=== PATIENT | female | born 1970 | race Caucasian/White ===

== ENCOUNTER 2016-09-02 05:14 | Inpatient (IN) | payer OTHER ==
[2016-08-14 10:57] VITALS: BMI 25.0
--- NOTE | 2016-08-14 11:32 | PAT Medication Instructions ---
Service Date Aug 14, 2016. Current Home Medication List Cholecalciferol (Vitamin D), 2,000 UNITS PO HS Cyanocobalamin (Vitamin B12), 500 MCG PO HS Multiple Vitamins W/ Minerals (Multi For Her), 1 TAB PO HS Phentermine Hcl (Adipex P), 0.5 TAB PO PRN Pyridoxine (Vitamin B6), 500 MG PO HS Valacyclovir (Valtrex), 500 MG PO QAM Medication Instructions For Your Scheduled Surgery - Hold the following medications the morning of surgery: Phentermine Hcl (Adipex P), 0.5 TAB PO PRN - Take the following medications the morning of surgery with a sip of water: Valacyclovir (Valtrex), 500 MG PO QAM - Take the following medications as scheduled the night before surgery: Cholecalciferol (Vitamin D), 2,000 UNITS PO HS Cyanocobalamin (Vitamin B12), 500 MCG PO HS Multiple Vitamins W/ Minerals (Multi For Her), 1 TAB PO HS Pyridoxine (Vitamin B6), 500 MG PO HS If you have any questions please call us at [phone] or [phone] or [phone]
--- NOTE | 2016-08-14 12:00 | DIAGNOSTIC IMAGING REPORT ---
CHEST 2 VIEWS ROUTINE CLINICAL HISTORY: PAT preoperative evaluation COMPARISON STUDY: No previous studies for comparison. FINDINGS: The bones soft tissues and hemidiaphragms are normal. The cardiomediastinal silhouette is normal. The lungs are clear. The pulmonary vasculature is normal. IMPRESSION: Negative chest. Electronically signed by: Jeff Baer M.D. 08/14/2016 11:58 AM Dictated Date/Time: 08/14/2016 11:58 AM
[2016-08-14 12:23] LABS: BASO % 0.2 %; BASO ABS # 0.01 K/uL (0-0.2); COMPLETE YES; EOS % 0.7 %; HEMATOCRIT 40.9 % (37-47); LYMPH % 34.2 %; LYMPH ABS # 1.85 K/uL (1.2-3.4); MEAN CELL VOLUME 105.7 fL (80-100); MEAN PLATELET VOLUME 11.5 fL (7.4-10.4); MONO % 8.3 %; NEUT % 56.6 %; PLATELET COUNT 204 K/uL (130-400); RED BLOOD COUNT 3.87 M/uL (4.2-5.4); WHITE BLOOD COUNT 5.41 K/uL (4.8-10.8)
[2016-08-14 12:24] LABS: PROTHROMBIN TIME (PATIENT) 11.1 SECONDS (9.0-12.0)
[2016-08-14 12:35] LABS: URINE APPEARANCE CLEAR (CLEAR); URINE BILIRUBIN NEG (NEG); URINE COLOR YELLOW; URINE EPITHELIAL CELL AUTO >30 /lpf (0-5); URINE NITRITE NEG (NEG); URINE SPECIFIC GRAVITY 1.017 (1.000-1.030); UROBILINOGEN NEG (NEG)
[2016-08-14 12:36] LABS: BUN/CREATININE RATIO 19.6 (10-20); CALCIUM 9.9 mg/dl (8.5-10.1); CREATININE 0.71 mg/dl (0.60-1.20); POTASSIUM 4.5 mmol/L (3.5-5.1)
[2016-08-14 12:37] LABS: MANUAL MICROSCOPIC REQUIRED? NO; REVIEW REQ? NO
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
[~2016-09-02] VITALS: Ht 172.7 cm; Wt 25.5 kg
[2016-09-02] VITALS (10 sets, daily range): BP systolic 89–122; BP diastolic 55–78; PULSE 53–81; TEMP 36.3–36.9; O2SAT 96–100; Ht 172.7 cm; Wt 25.5 kg
[~2016-09-02 05:14] MED LIST: CHOL100010 PO; CYAN100020 PO; MULT-222 PO; PHEN37.585 PO; PYRI100T4 PO; VALA500T60 PO
[2016-09-02] MEDS ORDERED: FAMOTIDINE 20 MG TAB PO SCH (06:00)
[2016-09-02] MEDS ORDERED: GABAPENTIN 300 MG CAP PO SCH (06:00)
[2016-09-02] MEDS ORDERED: LACTATED RINGER'S 1000ML 500 ML IV ONE (06:00)
[2016-09-02] MEDS ORDERED: METOCLOPRAMIDE HCL 10 MG TAB PO SCH (06:00)
[2016-09-02] MEDS ORDERED: LACTATED RINGER'S 1000ML 1,000 ML IV SCH (06:00)
[2016-09-02] MEDS ORDERED: DEXAMETHASONE 4 MG TAB PO SCH (06:00)
[2016-09-02] MEDS ORDERED: ACETAMINOPHEN 500 MG TAB PO SCH (06:00)
[2016-09-02] MEDS ORDERED: ROPIVACAINE 5MG/ML 30 ML 150 MG, BUPIVACAINE/EPINEPHR 0.5% MPF 30 ML, KETOROLAC TROMETH... INFIL SCH ×7 (06:00)
[2016-09-02] MEDS ORDERED: VANCOMYCIN INJ 400 MG in NSS 100ML IR SCH (06:00)
[2016-09-02] MEDS ORDERED: CEFAZOLIN 2000 MG/60 ML D5W 60 ML IV SCH (06:00)
[2016-09-02] MEDS ORDERED: CeleBREX 200 MG CAP PO SCH (06:00)
[2016-09-02] MEDS ORDERED: OXYCODONE HCL 10 MG TABCR (OXYCONTIN) PO SCH (06:00)
[2016-09-02] MEDS ORDERED: LACTATED RINGER'S 1000ML IV SCH (06:00)
[2016-09-02] MEDS ORDERED: POLYMYXIN B SULFATE 100,000 UNITS in NSS 100ML IR SCH (06:00)
[2016-09-02] MEDS: TRANEXAMIC ACID INJ 1,000 MG in SODIUM CHLORIDE 0.9% 100ML 100 ML IV SCH ×2 (06:30→06:55)
[2016-09-02] MEDS ORDERED: BUPIVACAINE 0.5 % 5 MG/1 ML PF 10ML VIAL ONE (06:35)
[2016-09-02] MEDS ORDERED: MIDAZOLAM HCL 1 MG/ML 2ML VIAL ONE ×2 (06:43→07:23)
[2016-09-02] MEDS ORDERED: FENTANYL CITRATE INJ 50 MCG/1 ML 2 ML VIAL ONE (06:43)
--- NOTE | 2016-09-02 06:54 | History & Physical Bridge Note ---
H&P Re-Evaluation Bridge Note: I have examined the patient, reviewed the History & Physical and in the interval since the performance of the History & Physical I have noted the following changes of clinical significance: No changes noted
[2016-09-02] MEDS ORDERED: ONDANSETRON INJ 2 MG/ML 2 ML VIAL ONE (06:55)
[2016-09-02] MEDS ORDERED: ORTHO JOINT ANESTHETIC ONE (07:04)
[2016-09-02] MEDS ORDERED: BACITRACIN 50000 UNIT VIAL ONE (07:05)
[2016-09-02] MEDS ORDERED: POVIDONE-IODINE OP SOLN 30 ML BTL ONE (07:05)
[2016-09-02] MEDS ORDERED: BUPIVACAINE/EPINEPHRINE 0.25% 1:200,000 30 ML VIAL ONE (07:05)
[2016-09-02] MEDS ORDERED: PROPOFOL IV EMULSION 10 MG/ML 20 ML VIAL IV ONE ×2 (07:29→08:24)
[2016-09-02] MEDS ORDERED: LIDOCAINE HCL 2% 2 ML VIAL (20MG/ML) ONE (07:29)
[2016-09-02] MEDS ORDERED: EpHEDrine SULFATE 50MG/5ML SYR ONE (07:41)
[2016-09-02] MEDS ORDERED: ONDANSETRON INJ 2 MG/ML 2 ML VIAL IV PRN ×2 (08:15→08:30)
[2016-09-02] MEDS ORDERED: ATROPINE SULFATE 0.1 MG/ML 5ML SYR IV PRN (08:15)
[2016-09-02] MEDS ORDERED: FENTANYL CITRATE INJ 50 MCG/1 ML 2 ML VIAL IV PRN (08:15)
[2016-09-02] MEDS ORDERED: MoRPHine SULFATE 10 MG/ML CARP/VIAL IV PRN (08:15)
[2016-09-02] MEDS ORDERED: EpHEDrine SULFATE INJ 50 MG/ML AMP IV PRN (08:15)
[2016-09-02] MEDS ORDERED: METOCLOPRAMIDE HCL INJ 5 MG/ML 2 ML VIAL IV PRN (08:30)
[2016-09-02] MEDS ORDERED: SOD PHOSPHATE/SOD BIPHOSPHATE ENEMA 132 ML BTL PR PRN (08:30)
[2016-09-02] MEDS ORDERED: TRAMADOL HCL 50 MG TAB PO PRN (08:30)
[2016-09-02] MEDS ORDERED: DiphenhydrAMINE HCL 50 MG/ML VIAL IV PRN (08:30)
[2016-09-02] MEDS ORDERED: ALUMINUM/MAGNESIUM/SIMETH (MAALOX MAX) 30 ML UDC PO PRN (08:30)
[2016-09-02] MEDS ORDERED: ZOLPIDEM TARTRATE 5 MG TAB PO PRN (08:30)
[2016-09-02] MEDS ORDERED: MAGNESIUM HYDROXIDE SUSP 30 ML UDC PO PRN (08:30)
[2016-09-02] MEDS ORDERED: BISACODYL 10 MG SUPP PR PRN (08:30)
--- NOTE | 2016-09-02 08:30 | [facility] Post Operative Brief Note ---
Immediate Operative Summary Operative Date Sep 02, 2016. Pre-Operative Diagnosis Posttraumatic degenerative joint disease, left knee Post-Operative Diagnosis Same Procedure(s) Performed Left Total Knee Arthroplasty Cemented Surgeon Dr Eri Haney Woodworking Machine Operator Surgeon(s) Nidia Fierro PA-C Estimated Blood Loss 50ML Findings DJD ACL DEF Specimens A. Left knee bone and tissue Complication(s) None Disposition Recovery Room / PACU
[2016-09-02] MEDS: OXYCODONE HCL 10 MG TABCR (OXYCONTIN) PO SCH ×2 (09:00→20:43)
--- NOTE | 2016-09-02 09:19 | DIAGNOSTIC IMAGING REPORT ---
LEFT KNEE 1 OR 2 VIEWS ROUTINE CLINICAL HISTORY: Left knee arthritis. Arthroplasty. COMPARISON: None FINDINGS: Alignment of the total left knee arthroplasty is anatomic. There is no acute fracture or unexpected radiopaque foreign body. A screw within the proximal left tibia is present. IMPRESSION: Expected findings following total left knee arthroplasty. Electronically signed by: Melvin Chow M.D. 09/02/2016 9:18 AM Dictated Date/Time: 09/02/2016 9:17 AM
--- NOTE | 2016-09-02 09:32 | Anesthesiology Progress Note ---
Anesthesia Post Op Note Date & Time Sep 02, 2016 at 09:32 Vital Signs Pain Intensity: 0 Vital Signs Past 12 Hours Date Time Temp Pulse Resp B/P Pulse Ox O2 Delivery O2 Flow Rate FiO2 09/02/16 09:25 58 16 92/56 100 Nasal Cannula 2 09/02/16 09:15 58 14 95/63 100 Mask 10 09/02/16 09:05 55 15 97/59 100 Mask 10 09/02/16 08:59 36.0 62 18 98/57 100 Mask 10 09/02/16 05:56 36.8 64 18 122/78 99 Room Air Notes Mental Status: alert / awake / arousable, participated in evaluation Pt Amnestic to Procedure: Yes Nausea / Vomiting: adequately controlled Pain: adequately controlled Airway Patency, RR, SpO2: stable & adequate BP & HR: stable & adequate Hydration State: stable & adequate Neuraxial Anesthesia: was administered, sensory block is resolving Anesthetic Complications: no major complications apparent
[2016-09-02] MEDS: OXYCODONE HCL IR 5 MG TAB (IMMEDIATE RELEASE) PO PRN ×3 (13:07→21:06)
[2016-09-02] MEDS: ACETAMINOPHEN 500 MG TAB PO SCH ×2 (14:19→22:13)
[2016-09-02] MEDS: D5W AND 1/2NSS + 20MEQ KCL 1,000 ML IV SCH ×2 (14:20→20:42)
[2016-09-02] MEDS ORDERED: TRANEXAMIC ACID INJ 1,000 MG in SODIUM CHLORIDE 0.9% 100ML 100 ML IV SCH (14:30)
--- NOTE | 2016-09-02 16:52 | OPERATIVE REPORT ---
DATE OF OPERATION: 09/02/2016 PREOPERATIVE DIAGNOSIS: Posttraumatic degenerative arthritis, left knee. POSTOPERATIVE DIAGNOSIS: Same. PROCEDURE: Left total knee with patient matched implant. SURGEON: John Haney M.D. FOUNDER AND CHIEF EXECUTIVE OFFICER: Nidia Fierro PA-C. ANESTHESIA: Spinal. BLOOD LOSS: 50 mL. REPLACEMENT FLUIDS: 1100 mL crystalloid. DRAINS: Hemovac x2. CULTURES: None. COMPLICATIONS: None. COMPONENTS USED: Wing \T\ Nephew Journey Knee System: Femur size 5, tibia size 4 x 9, patella size 29. NOTE: Nidia Fierro was present and assisted throughout due to the complicated nature of the case. She helped with preparation and setup, first assisted throughout and personally closed the capsule, subcutaneous and skin layers and applied the postoperative dressing. OPERATION AND FINDINGS: DESCRIPTION: Following satisfactory spinal, the patient was supine. A tourniquet was placed but not inflated. The lower extremity was prepared with ChloraPrep and draped sterilely. Following a surgical time-out, a midline incision was made with a trivector approach. The knee showed chronic scarring. There was no evidence of an ACL and there was severe grade 4 changes in all 3 compartments with abundant osteophytes. The posterior cruciate ligament was excised. The patient matched femoral block was applied. Femoral distal rotation and resection were set and completed. The 4-in-1 block was used to finish preparation of the femur. The patient matched tibial block was applied. Tibial resection was completed. The patella was freehand cut. Soft tissue balancing was completed and a trial reduction showed very good tensioning stability on the collateral ligaments, stable range of motion, and the patella tracked well. The trial components were removed. The capsule was prepared with the orthopedic cocktail and after irrigation the components were cemented using Simplex G cement. A Betadine soak was performed. When the cement had hardened, the Betadine was irrigated. Two drains were placed. The arthrotomy was closed with a running suture of 0 V-Loc and reinforced with 1 Vicryl, subcutaneous tissues with 2-0 Vicryl and the skin with a running subcuticular stitch of 3-0 V-Loc. Dermabond and a dry dressing were applied. The patient was returned to her bed in stable condition. I attest to the content of the Intraoperative Record and any orders documented therein. Any exceptio ns are noted below.
[2016-09-02] MEDS: CEFAZOLIN IV 2,000 MG in DEXTROSE 5% 50ML 50 ML IV SCH (16:56)
[2016-09-02] MEDS: MoRPHine SULFATE 2 MG/ML CARP IV PRN ×2 (17:50→22:13)
[2016-09-02] MEDS: KETOROLAC TROMETHAMINE 30 MG/ML VIAL IV. PRN (17:51)
[2016-09-02] MEDS: ASPIRIN 81 MG ECTAB PO SCH (20:42)
[2016-09-02] MEDS: CHOLECALCIFEROL 1000 INTER.UNIT TAB PO SCH (20:43)
[2016-09-02] MEDS: CYANOCOBALAMIN 500 MCG TAB (VIT B-12) PO SCH (20:43)
[2016-09-02] MEDS: SENNA 8.6 MG TAB PO SCH (20:43)
[2016-09-02] MEDS: PYRIDOXINE HCL 50 MG TAB PO SCH (20:45)
[2016-09-03] MEDS: MoRPHine SULFATE 2 MG/ML CARP IV PRN ×2 (00:18→03:59)
[2016-09-03] MEDS: KETOROLAC TROMETHAMINE 30 MG/ML VIAL IV. PRN ×4 (00:18→23:42)
[2016-09-03] MEDS: CEFAZOLIN IV 2,000 MG in DEXTROSE 5% 50ML 50 ML IV SCH (00:18)
[2016-09-03] MEDS: OXYCODONE HCL IR 5 MG TAB (IMMEDIATE RELEASE) PO PRN ×5 (02:17→23:43)
[2016-09-03 03:05] VITALS: BP 91/52; PULSE 57; TEMP 36.5; O2SAT 94
[2016-09-03 05:36] LABS: HEMATOCRIT 29.9 % (37-47); MEAN CELL VOLUME 103.5 fL (80-100); MEAN CORPUSCULAR HEMOGLOBIN 34.9 pg (25-34); MEAN CORPUSCULAR HGB CONC 33.8 g/dl (32-36); MEAN PLATELET VOLUME 10.8 fL (7.4-10.4); PLATELET COUNT 165 K/uL (130-400); RED BLOOD COUNT 2.89 M/uL (4.2-5.4); WHITE BLOOD COUNT 11.12 K/uL (4.8-10.8)
[2016-09-03 06:10] LABS: BUN/CREATININE RATIO 17.9 (10-20); CALCIUM 8.4 mg/dl (8.5-10.1); CREATININE 0.61 mg/dl (0.60-1.20); POTASSIUM 3.9 mmol/L (3.5-5.1)
[2016-09-03] MEDS: ACETAMINOPHEN 500 MG TAB PO SCH ×3 (06:23→21:42)
[2016-09-03] MEDS: D5W AND 1/2NSS + 20MEQ KCL 1,000 ML IV SCH (06:24)
[2016-09-03 07:51] VITALS: BP 100/70; PULSE 62; TEMP 36.4; O2SAT 100
--- NOTE | 2016-09-03 07:53 | Orthopedic Progress Note ---
Orthopedic Progress Note Date of Service Sep 03, 2016. Subjective Post OP Day: 2 Reports: feeling well, pain controlled w PO medications, Denies: calf pain, complaints Objective calves soft nontender, N/V intact, dressing C/D/I, A&O x3, hemovac drainage ( 850 150 LAST SHIFT ) Date Time Temp Pulse Resp B/P Pulse Ox O2 Delivery O2 Flow Rate FiO2 09/03/16 03:05 36.5 57 18 91/52 94 Room Air 09/02/16 23:10 36.6 53 16 92/55 96 Room Air 09/02/16 20:00 Room Air 09/02/16 19:05 36.5 56 16 98/62 96 Room Air 09/02/16 15:08 36.4 69 18 93/57 97 Room Air 09/02/16 12:58 36.9 81 19 109/60 96 Room Air 09/02/16 11:54 64 19 94/60 100 Nasal Cannula 2.0 09/02/16 11:22 63 16 94/59 09/02/16 10:54 36.3 56 19 89/57 100 Nasal Cannula 2.0 09/02/16 10:21 63 19 105/69 100 Nasal Cannula 2.0 09/02/16 09:55 Nasal Cannula 2.0 09/02/16 09:55 36.4 64 16 97/60 98 Nasal Cannula 2.0 09/02/16 09:55 Nasal Cannula 2.0 09/02/16 09:40 59 17 93/59 100 Nasal Cannula 2 09/02/16 09:35 36.4 62 14 94/59 100 Nasal Cannula 2 09/02/16 09:25 58 16 92/56 100 Nasal Cannula 2 09/02/16 09:15 58 14 95/63 100 Mask 10 09/02/16 09:05 55 15 97/59 100 Mask 10 09/02/16 08:59 36.0 62 18 98/57 100 Mask 10 Laboratory Results 24 Hours: Test 09/03/16 04:58 Hematocrit 29.9 % Hemoglobin 10.1 g/dL Assessment & Plan Assessment: POD 1 TKA Plan: PT LIVES IN [place] WILL OBSERVE TODAY DUE TO DRAINAGE DC DRESSING DRAIN IN AM Inhouse Planning Pain Management: Celebrex, Oxycontin, PO Tylenol, Oxy IR DVT Prophylaxis: TEDs, SCDs, ASA Discharge Planning Discharge Planning: home with home health Pain Management: Celebrex, Oxycontin, PO Tylenol, Oxy IR DVT Prophylaxis: TEDs, ASA
[2016-09-03 08:49] VITALS: O2SAT 100
[2016-09-03] MEDS: ASPIRIN 81 MG ECTAB PO SCH ×2 (08:59→20:44)
[2016-09-03] MEDS: PANTOprazole SOD 40 MG TAB PO SCH (08:59)
[2016-09-03] MEDS: MULTIVITAMIN TAB PO SCH (08:59)
[2016-09-03] MEDS: OXYCODONE HCL 10 MG TABCR (OXYCONTIN) PO SCH ×2 (09:00→20:43)
--- NOTE | 2016-09-03 09:46 | Anesthesiology Progress Note ---
Anesthesia Post Op Note Date & Time Sep 03, 2016 at 09:46 Vital Signs Vital Signs Past 12 Hours Date Time Temp Pulse Resp B/P Pulse Ox O2 Delivery O2 Flow Rate FiO2 09/03/16 08:49 100 Room Air 09/03/16 08:26 Room Air 09/03/16 07:51 36.4 62 16 100/70 100 Room Air 09/03/16 03:05 36.5 57 18 91/52 94 Room Air 09/02/16 23:10 36.6 53 16 92/55 96 Room Air Notes Mental Status: alert / awake / arousable, participated in evaluation Pt Amnestic to Procedure: Yes Nausea / Vomiting: adequately controlled Pain: adequately controlled Airway Patency, RR, SpO2: stable & adequate BP & HR: stable & adequate Hydration State: stable & adequate Neuraxial Anesthesia: was administered, sensory block resolved Anesthetic Complications: no major complications apparent
[2016-09-03 11:46] VITALS: BP 98/78; PULSE 58; TEMP 36.3; O2SAT 100
[2016-09-03 15:12] VITALS: BP 104/66; PULSE 60; TEMP 36.3; O2SAT 100
[2016-09-03] MEDS: PYRIDOXINE HCL 50 MG TAB PO SCH (20:43)
[2016-09-03] MEDS: SENNA 8.6 MG TAB PO SCH (20:44)
[2016-09-03] MEDS: CYANOCOBALAMIN 500 MCG TAB (VIT B-12) PO SCH (20:45)
[2016-09-03] MEDS: CHOLECALCIFEROL 1000 INTER.UNIT TAB PO SCH (20:45)
[2016-09-03 22:50] VITALS: BP 98/64; PULSE 74; TEMP 36.6; O2SAT 98
[2016-09-04] MEDS: OXYCODONE HCL IR 5 MG TAB (IMMEDIATE RELEASE) PO PRN ×2 (04:58→09:33)
[2016-09-04] MEDS: ACETAMINOPHEN 500 MG TAB PO SCH (05:50)
[2016-09-04 05:57] VITALS: BP 115/80; PULSE 63; TEMP 36.6; O2SAT 99
--- NOTE | 2016-09-04 07:36 | Discharge Instructions ---
Discharge Instructions Date of Service Sep 04, 2016. Admission Reason for Admission: Left Knee Degenerative Arthritis Discharge Discharge Diagnosis / Problem: sp left total knee arthroplasty Discharge Goals Goal(s): Decrease discomfort, Improve function, Increase independence Activity Recommendations Activity Limitations: per Instructions/Follow-up section . Instructions / Follow-Up Instructions / Follow-Up ACTIVITY RECOMMENDATIONS: SELF CARE INSTRUCTIONS AFTER TOTAL KNEE REPLACEMENT A. You may need to continue a physical therapy program after discharge from the hospital. There are several options available to you. Your doctor will assist you in selecting the best one for you. 1. An out-patient facility 2 to 3 times a week for therapy or home therapy. 2. Continue working on all exercises taught to you in the hospital. Your goals should be to increase bending of your knee to 90 degrees and beyond and to fully straighten your knee. B. You may progress at your own pace from walking with a walker or crutches to a cane; then to no assistive devices. C. Make walking a part of your daily routine. Be up as much as comfortable with rest periods throughout the day. Rest with leg elevation is very important. Use the ice wrap frequently for the first 3-4 weeks. D. There are no restrictions on activities. You may ride in a car, shop, participate in deputy sheriff and all social activities. E. Wear the long elastic stockings (RAMSES hose) 20 hours a day for 2 weeks after surgery. They can be removed several times a day for laundering and for a bath. F. You may shower, no tub baths until cleared by your doctor. SPECIAL CARE INSTRUCTIONS: VERY IMPORTANT TO READ AND REVIEW A. There are a few signs you need to watch for after you are home. Call [facility] if you notice any of the followin. Increased severe knee pain. Some pain is expected especially when you exercise. 2. Increased swelling in your leg or knee; pain or swelling of the calf muscle in either lower leg. 3. Any fluid drainage from the incision. 4. Shortness of breath or chest pain. B. Please call [facility] at if you have any concerns or questions about your operation or recovery. The doctor or his nurse will return your call promptly. C. You must take antibiotics before dental work, bladder, bowel or other surgery. Your doctor will provide you with a permanent care to carry describing this precaution. IMPORTANT: * REMEMBER TO TAKE ASPIRIN, 81 MG, TWICE DAILY FOR 4 WEEKS UNLESS OTHERWISE DIRECTED. THIS IS YOUR BLOOD THINNER. * HIGH RISK PATIENTS MAY BE PRESCRIBED A STRONGER BLOOD THINNER. THIS WILL BE PROVIDED AT DISCHARGE. * CALL IF INCREASED PAIN, REDNESS, DRAINAGE OR FEVER GREATER THAT 101. * WEAR RAMSES HOSE 20 HOURS PER DAY FOR 2 WEEKS. DERMABOND Prineo- This is a mesh tape dressing that is covered with glue. It should remain in place until the incision is properly healed, usually 10-14 days. This dressing is designed to naturally slough off. You may trim the excess mesh tape as it peels off. Incision may be briefly wet in a shower. Dry immediately by blotting with a clean, dry towel. Do not bath or swim until instructed by your doctor. Do not scratch, rub, or pick at the dressing. Do not apply any topical ointments or lotions until dressing is completely removed and/or instructed by your doctor. There may be a small piece of suture material at one end of your incision. Do not pull or trim this. If it is bothersome or catching on clothing, you may cover it with a band-aid. FOLLOW UP VISIT: If appointment is not already scheduled: Please call [facility] to make a follow-up appointment for 2 weeks after your surgery at . Current Hospital Diet Patient's current hospital diet: Regular Diet Discharge Diet Recommended Diet: Regular Diet Procedures Procedures Performed: Left Total Knee Arthroplasty Cemented Pending Studies Studies pending at discharge: no Medical Emergencies . Who to Call and When: Medical Emergencies: If at any time you feel your situation is an emergency, please call 911 immediately. . Non-Emergent Contact Non-Emergency issues call your: Surgeon . "Provider Documentation" section prepared by iNdia Fierro. VTE Core Measure Inpt VTE Proph given/why not?: Other Anticoagulation, T.E.Rigoberto De La Garza, SCD's [place] Drug Monitoring Program Search Results: see additional documentation (PATIENT IS FROM [place].)
[2016-09-04] MEDS ORDERED: ONDA8TAB6 PO (07:39)
[2016-09-04] MEDS ORDERED: MORP-157 PO (07:39)
[2016-09-04] MEDS ORDERED: ASPEC81 PO (07:39)
[2016-09-04] MEDS ORDERED: RXC5 PO (07:39)
[2016-09-04] MEDS ORDERED: CLB200 PO (07:39)
[2016-09-04] MEDS ORDERED: ACET-1138 PO (07:39)
[2016-09-04] MEDS ORDERED: SNK PO (07:39)
--- NOTE | 2016-09-04 08:01 | DISCHARGE SUMMARY ---
DISCHARGE DIAGNOSIS: Degenerative joint disease left knee. SECONDARY DIAGNOSIS: None. CONSULTS: None. COMPLICATIONS: None. PROCEDURE: The patient underwent a left total knee arthroplasty with Dr. Haney on 09/02/2016. BRIEF HISTORY: Please see previously dictated history and physical. HOSPITAL SUMMARY: The patient was admitted on the above day for the above procedure. Procedure went without complication. Postop day 1, the patient was feeling well without complaints. She denied chest pain or shortness of breath. Vital signs were stable. She was afebrile. Dressing was clean, dry and intact. She was neurovascularly intact. Calves were soft and nontender. Hemovac drained 850 and 150 mL per shift. Hemoglobin was 10.1. The patient began physical therapy per protocol. Postop day 2 the patient was improving. She denied chest pain or shortness of breath. Vital signs were stable. She was afebrile. Incision was clean, dry and intact. She was neurovascularly intact. Calves are soft and nontender. The patient continued to progress with physical therapy per protocol. She was discharged to home later that day in stable condition. For further review please see the chart. Lab, x-ray data and discharge instructions as per chart.
[2016-09-04] MEDS: OXYCODONE HCL 10 MG TABCR (OXYCONTIN) PO SCH (09:29)
[2016-09-04] MEDS: PANTOprazole SOD 40 MG TAB PO SCH (09:29)
[2016-09-04] MEDS: ASPIRIN 81 MG ECTAB PO SCH (09:30)
[2016-09-04] MEDS: MULTIVITAMIN TAB PO SCH (09:30)
[2016-09-04 09:36] VITALS: BP 115/80; PULSE 63; TEMP 36.6; O2SAT 99
[2016-09-04] MEDS ORDERED: NURSING VERBAL MED ORDER ONE (10:00)
[2016-09-04] MEDS ORDERED: KETOROLAC TROMETHAMINE 30 MG/ML VIAL IV. SCH (10:00)
[2016-09-04] MEDS ORDERED: KETOROLAC TROMETHAMINE 30 MG/ML VIAL ONE (10:05)
[2016-09-04] MEDS ORDERED: CeleBREX 200 MG CAP PO SCH (21:00)
== END 2016-09-04 10:15 | disposition home or self-care (01) | DRG 470 ==
LOC: ENRESERVTM → ENRESERVDT → C.ACU 05:14 → C.3E 05:45
PROVIDERS: ADMIT Orthopaedic Surgery; ATTEND Orthopaedic Surgery
PROC: 0SRD0J9 Replacement of Left Knee Joint with Synthetic Substitute, Cemented, Open Approach (ICD-10-PCS; principal; 2016-09-02 07:15)
DX: M17.12 Unilateral primary osteoarthritis, left knee (principal); Z79.899 Other long term (current) drug therapy